=== PATIENT | male | born 1975 | race Caucasian/White ===

== ENCOUNTER 2022-11-26 13:07 | Emergency (ER) | payer BC, SELFPAY ==
[2022-11-26 13:08] VITALS: BP 165/121; PULSE 85; RESP 16; TEMP 36.3; O2SAT 99; BMI 28.5
[2022-11-26 13:47] VITALS: BP 157/90; PULSE 76
[2022-11-26 13:59] LABS: Bacteria 0 SEEN /hpf (None Seen); Mucous, Urine 0 SEEN /hpf (<or=2+); Red Blood Cells-Urine 0 SEEN /hpf (0-5); Squamous Epithelial Cells - UA 0 SEEN /hpf (0-5); White Blood Cells 0 SEEN /hpf (0-5)
[2022-11-26 14:09] VITALS: BP 148/92; BP 154/101; BP 162/93; PULSE 77; PULSE 88; PULSE 95
[2022-11-26 14:09] LABS: Color, Urine Straw (Yellow); Glucose, Dipstick Normal (Normal); Ketone-Dipstick Negative (Negative); Leukocyte Esterase-Dipstick Negative /ul (Negative); Nitrite-Dipstick Negative (Negative); Occult Blood-Urine Negative /ul (Negative); Protein-Dipstick Negative (Negative); Specific Gravity, Urine 1.005 (1.002-1.030); Urine Bilirubin Dipstick Negative (Negative); Urine Clarity Clear (Clear); Urine Urobilinogen Normal (Normal); Urine pH 6.5 (5.0 - 8.0)
[2022-11-26 14:10] LABS: Mean Corp Hgb Conc 34.9 g/dL (32-36); Mean Corpuscular Hgb 29.8 pg (27.0-32.0); Mean Corpuscular Volume 85.3 fL (80-94); Mean Platelet Vol. 9.3 fl (6.2-12.0); Platelet Count 214 K/mm3 (150-450); RBC Distribution Width SD 37.4 fl (35.1-43.9); Red Blood Count 5.04 M/mm3 (4.6-6.2); White Blood Count 5.8 K/mm3 (4.4-11.0)
[2022-11-26 14:22] LABS: Anion Gap 6 (5-15); BUN 14 mg/dL (7-18); Calcium,Total 9.8 mg/dL (8.5-10.1); Chloride 105 mmol/L (98-107); Creatinine, Serum 1.08 mg/dL (0.70-1.30); EST Glomerular Filtration Rate 77 mL/min (>60); Est Glom Filt Rate - Afr Amer 93 mL/min (>60); Estimated Creatinine Clearance 82.74 ml/min; Glucose 124 mg/dL (74-106); Potassium 4.1 mmol/L (3.5-5.1); Sodium Level 139 mmol/L (136-145)
[2022-11-26 14:34] VITALS: BP 142/86; PULSE 74; RESP 19; O2SAT 98
--- NOTE | 2022-11-26 14:54 | EX.ED.DYSGE1 ---
HPI History of Present Illness Chief Complaint: Dizziness Detail of Chief Complaint: Lightheadedness predominantly also fuzziness in his head Informant: patient Onset/Context/Timing Onset: Days (First episode occurred on Thursday. Had another episode while he was standing in line at [employer]) Context: Sudden Onset Timing: Intermittent Quality: Predominantly orthostatic and fuzziness in the head. Location: Not applicable Current Severity: Gone Maximum Severity: Moderate Worsened by: Possibly change in head position Relieved by: Nothing that patient can identify Associated Symptoms Associated Symptoms: Lightheadedness and head fullness Narrative Narrative: As perPatient is a 47-year-old male. Episode occurred and his blood pressure was elevated with systolic of 160. He denied headache. He denied double vision, blurred vision loss of vision. [place] ringing his ears or decreased hearing. No trouble with speech or swallowing. He denies cardiac respiratory symptoms. He denies nausea, vomiting diarrhea. Not black or maroon-colored stool. He denies urologic symptoms. He denied spinning sensation. There is no family history of cardiovascular disease at early age. Prior similar symptoms: No Recent Illness/Hospitalization: No PFSH PFSH Medical History no medical history no medical history Allergy/AdvReac Type Severity Reaction Status Date / Time No Known Allergies Allergy Verified 11/26/22 13:08 Family History no significant family his no significant family history Surgical History no surgical history no surgical history Social History (Updated 11/26/22 @ 14:[address] Jose Dominique MD) household members: spouse and family Smoking Status: Never smoker substance use type: does not use ROS ROS ED Constitutional Constitutional ED: Denies chills, fever(s), subjective, sweats or weight loss Eyes Eyes: Denies blurry vision, change in vision or diplopia ENT ENT ED: Reports other Details: And per HPI narrative ; Denies ear pain, rhinorrhea or sore throat Cardiovascular Cardiovascular: Denies chest pain, orthopnea, palpitations, paroxysmal nocturnal dyspnea or racing heartbeat Respiratory/Chest Respiratory/Chest: Denies cough, dyspnea, dyspnea on exertion, orthopnea or paroxysmal nocturnal dyspnea Gastrointestinal Gastrointestinal: Denies abdominal pain, melena, nausea or vomiting Genitourinary Genitourinary ED: Denies dysuria or hematuria Musculoskeletal Musculoskeletal: Denies arthralgias, back pain, myalgias or neck pain Integumentary Denies rash Neurologic Neurologic: Denies headache(s), paresthesias or weakness Hematologic/Lymphatic Hematologic/Lymphatic: Reports systems reviewed and no addt'l complaints, except as documented EXAM Physical Exam Const Vital Signs: 11/26/22 13:08 11/26/22 13:23 11/26/22 13:47 Temperature 97.4 F L Temperature Source Temporal Pulse Rate 85 76 Pulse Rate [Lying] Pulse Rate [Sitting (for 1 minute prior to obtaining)] Pulse Rate [Standing (for 1 minute prior to obtaining)] Respiratory Rate 16 Respiratory Effort Normal Respiratory Pattern Normal Blood Pressure 165/121 H 157/90 H Blood Pressure [Lying] Blood Pressure [Sitting (for 1 minute prior to obtaining)] Blood Pressure [Standing (for 1 minute prior to obtaining)] Blood Pressure Mean 135 112 Blood Pressure Mean [Lying] Blood Pressure Mean [Sitting (for 1 minute prior to obtaining)] Blood Pressure Mean [Standing (for 1 minute prior to obtaining)] Pulse Ox 99 Oxygen Delivery Method Room Air 11/26/22 14:09 11/26/22 14:34 Temperature Temperature Source Pulse Rate 74 Pulse Rate [Lying] 77 Pulse Rate [Sitting (for 1 minute prior to obtaining)] 88 Pulse Rate [Standing (for 1 minute prior to obtaining)] 95 Respiratory Rate 19 H Respiratory Effort Respiratory Pattern Blood Pressure 142/86 H Blood Pressure [Lying] 148/92 H Blood Pressure [Sitting (for 1 minute prior to obtaining)] 162/93 H Blood Pressure [Standing (for 1 minute prior to obtaining)] 154/101 H Blood Pressure Mean 104 Blood Pressure Mean [Lying] 110 Blood Pressure Mean [Sitting (for 1 minute prior to obtaining)] 116 Blood Pressure Mean [Standing (for 1 minute prior to obtaining)] 118 Pulse Ox 98 Oxygen Delivery Method Room Air Positive well nourished and well developed General Appearance ED: well developed and NAD; Negative for cyanotic, diaphoretic or pallor HEENT Reports moist mucous membranes HEENT Narrative: Head is normal phallic. Ears normal. TMs normal. External auditory canal normal. Nares patent without discharge. Uvula midline. No deviation with protrusion. No erythema or exudate the posterior pharynx. Eyes PERRL and EOMs intact bilaterally Eyes Narrative: There is no nystagmus. General Eye ED: Negative for pale conjunctiva or scleral icterus Neck no lymphadenopathy, supple and no JVD Neck Narrative: Trachea midline. No carotid bruit over the right or left carotid. Chest Wall inspection of chest normal and palpation of chest normal Resp normal respiratory effort and clear to auscultation bilaterally Cardio regular rate, regular rhythm, S1 normal heart sound, S2 normal heart sound and no murmurs GI normal to inspection, nondistended, normoactive bowel sounds, non-tender, non-distended and no masses; Negative for hepatosplenomegaly Back/Spine no CVA tenderness Cervical Spine: Negative for cervical spine tenderness Thoracic Spine / Upper Back: Negative for thoracic spinal tenderness Lumbar Spine / Lower Back: Negative for lumbar spinal tenderness Extremity normal to inspection General Extremety ED: Negative for edema or tenderness General Extremity: Negative for edema Neuro oriented x3, CN's II-XII intact bilaterally and no sensory deficits noted Neuro Narrative: Romberg with eyes open and close normal. The eye askew test was negative. The hint test was negative. There is no truncal ataxia with rising from supine position. Eastman-Hallpike maneuver was negative. Patient states when I raised him from a supine position with his head turned to the right he had dizziness and lasted a second or 2. There was no nystagmus. Sensorium / Orientation: alert Motor Exam: strength 5/5 throughout Skin no rashes or lesions noted, no wounds and skin turgor normal General Skin Exam: Negative for jaundice or pallor MDM MDM MDM Narrative Medical decision making narrative: Since symptom occurred with hypertension. Will obtain blood work and UA to assess for endorgan dysfunction. Suspect this represents benign positional paroxysmal vertigo. UA was obtained to assess specific gravity. Patient metabolic panel to determine if any evidence of renal injury. Orthostatic vital signs were normal. Patient's had numerous elevated blood pressure readings. He states he is slightly anxious. During exit interview, patient informed that several years ago he had elevated blood pressure. After he had lost weight his blood pressure normalized. Patient was referred to Dr. Brenda Thomas for follow-up. He was instructed to contact Dr. Yoo's office today for follow-up in 1 to 2 weeks. He was told he was not started on blood pressure medicine since he presently is asymptomatic and has no evidence of endorgan dysfunction. Upon further questioning his vertigo resolved when he was supine with eyes closed in his truck. He had transient episode of brain fog dizziness when he sat up in his truck prior to presenting to the emergency department. His history is consistent with benign paroxysmal positional vertigo. Lab Data Attestation: I reviewed the patient's lab results. Lab results narrative: Laboratory work-up is unremarkable. Labs: Laboratory Results - last 24 hr 11/26/22 11/26/22 11/26/22 13:40 13:40 13:45 WBC 5.8 RBC 5.04 Hgb 15.0 Hct 43.0 MCV 85.3 MCH 29.8 MCHC 34.9 RDW Std Deviation 37.4 RDW Coeff of Edmundo 12.0 Plt Count 214 MPV 9.3 Sodium 139 Potassium 4.1 Chloride 105 Carbon Dioxide 28.0 Anion Gap 6 BUN 14 Creatinine 1.08 Estim Creat Clear Calc 82.74 Est GFR (MDRD) Af Amer 93 Est GFR (MDRD) Non-Af 77 BUN/Creatinine Ratio 13.0 Glucose 124 H Calcium 9.8 Urine Color Straw Urine Clarity Clear Urine pH 6.5 Ur Specific [place] 1.005 Urine Protein Negative Urine Glucose (UA) Normal Urine Ketones Negative Urine Occult Blood Negative Urine Nitrite Negative Urine Bilirubin Negative Urine Urobilinogen Normal Ur Leukocyte Esterase Negative Urine RBC 0 SEEN Urine WBC 0 SEEN Ur Squamous Epith Cells 0 SEEN Urine Bacteria 0 SEEN Urine Mucus 0 SEEN Rhythm Strip Rhythm Strip: Sinus Rhythm Rate: 77 Ectopy: None Discharge Plan Triage Chief Complaint: Dizziness ED Provider: Jose Dominique Dx/Rx/DC Orders Clinical Impression: Benign paroxysmal positional vertigo of right ear, Asymptomatic hypertension Instructions: ED BPV Vertigo, ED Hypertension, To Be Confirmed Primary Care Provider: Care Physician,No Primary Referrals: Brenda Thomas MD [Med Staff - Dividing Machine Operator] - 1-2 Weeks Care Physician,No Primary [Primary Care Provider] - Disposition Disposition: Home, Self Care
[2022-11-26 15:22] VITALS: BP 172/99; PULSE 71; O2SAT 98
== END 2022-11-26 15:24 | disposition home or self-care (01) ==
PROVIDERS: Emergency Provider Emergency Medicine; Visit Provider Emergency Medicine
DX: H81.11 Benign paroxysmal vertigo, right ear (principal); I10 Essential (primary) hypertension
CPT/HCPCS: 80048; 81001; 85027; 99285; A4216

== ENCOUNTER 2025-08-12 18:13 | Emergency (ER) | payer BC, SELFPAY ==
[2025-08-12 18:14] VITALS: BP 157/95; PULSE 70; RESP 18; TEMP 36.6; O2SAT 96; BMI 27.4
--- NOTE | 2025-08-12 18:28 | EKG12_ITS ---
Test Reason : FLANK PAIN Blood Pressure : */* mmHG Vent. Rate : 65 BPM Atrial Rate : 65 BPM P-R Int : 126 ms QRS Dur : 86 ms QT Int : 404 ms P-R-T Axes : 17 1 29 degrees QTcB Int : 420 ms Normal sinus rhythm Normal ECG Confirmed by JEVON TATE ([id number]), senior editor IOANA ZELAYA ([id number]) on 08/14/2025 8:42:30 AM Referred By: Confirmed By: JEVON TATE
--- NOTE | 2025-08-12 18:28 | CT_ITS ---
PROCEDURE: ABDOMEN/PELVIS W IV CONT ONLY 08/12/2025 REASON FOR EXAM: R FLANK PAIN TECHNIQUE: Procedure Code: [id number] Modality: CT Procedure: ABDOMEN/PELVIS W IV CONT ONLY Coronal and Sagittal reconstruction series were provided. CONTRAST: Isovue 370 VOLUME: 100 mL One or more dose reduction techniques were used (e.g., Automated exposure control, adjustment of the mA and/or kV according to patient size, use of iterative reconstruction technique. RADIATION DOSE SUMMARY: DLP: 952.76 mGycm COMPARISON: None available. FINDINGS: Lower chest: Lung bases are clear. No pleural effusion. No pericardial effusion. Liver: Normal size. Normal morphology and enhancement. No masses. Gallbladder and biliary ducts: Normal gallbladder. Normal caliber intrahepatic and common bile ducts. Pancreas:Unremarkable. No ductal dilatation or mass. No peripancreatic fluid. Spleen: Unremarkable. Adrenal glands: Unremarkable. Kidneys and ureters: Normal renal size, morphology, and enhancement. There is a 2.7 mm distal right ureteral calculus just proximal to the vesicoureteral junction (series 2 image 104). There is mild upstream hydroureteronephrosis. Mild right perinephric edema. The right kidney is unremarkable. No left nephroureterolithiasis or hydronephrosis. Urinary bladder: Unremarkable. GI: Unremarkable stomach and duodenum. Normal caliber small bowel and large bowel.No evidence for bowel wall thickening. Appendix: Unremarkable. Peritoneum: No ascites. Small fat containing umbilical hernia. Lymph nodes: No lymphadenopathy. Vasculature: Portal, splenic, and superior mesenteric veins are patent. No abdominal aortic aneurysm. Reproductive organs: The prostate measures approximately 5.2 x 3.2 x 2.9 cm Musculoskeletal and soft tissues: No aggressive osseous lesions. Unremarkable soft tissues. CT/Abdomen/Pelvis W IV Cont ONLY IMPRESSION: 1. Obstructive 2.7 mm distal right ureteral calculus just proximal to the vesic oureteral junction with mild upstream hydroureteronephrosis. 2. Prostatomegaly. 3. Additional details as discussed above. Reading Location: [facility]
--- NOTE | 2025-08-12 18:29 | EX.ED.DYSGE1 ---
HPI History of Present Illness Chief Complaint: Flank Pain Narrative Narrative: Patient is a 50-year-old male with no known significant past medical history not on any daily medications who presents to the emergency department the chief complaint of right sided abdominal pain and back pain. He states that couple days ago he had a sensation feeling that he would have to pee but would not. He states that started around 3:00 this afternoon he had developed right sided pain as well as some back pain associated with this prompting him to come here for further evaluation management. Patient denies any history of tobacco use denies any IV drug use or any other drug use for that matter. Patient denies any sick contacts denies any fevers. States that his abnormal bowel movements formed self and is still able to urinate denies any blood in his urine PFSH PFSH Medical History no medical history Home Medications ?Medication ?Instructions ?Recorded ?Last Taken ?Type cephalexin 500 mg capsule 500 mg PO BID #10 caps 08/12/25 Unknown Rx ketorolac 10 mg tablet 10 mg PO Q6H PRN pain #20 tabs 08/12/25 Unknown Rx ondansetron 4 mg disintegrating 4 mg PO Q6H PRN nausea and 08/12/25 Unknown Rx tablet vomiting #20 tabs tamsulosin 0.4 mg capsule 0.4 mg PO DAILY #14 caps 08/12/25 Unknown Rx Allergy/AdvReac Type Severity Reaction Status Date / Time No Known Allergies Allergy Verified 08/12/25 18:13 Social History household members: spouse and family Smoking Status: Never smoker substance use type: does not use ROS ROS ED ROS Narrative Constitutional: Denies any fevers, chills, headaches Cardiovascular: Denies chest pain Respiratory: Denies shortness of breath Abdomen: Complains of right sided abdominal pain as noted above denies nausea vomiting diarrhea : Denies any increased frequency denies any painful urination denies any blood in the urine Neurological: Denies any numbness, weakness, tingling Musculoskeletal: Complains of flank pain as noted above Skin: Denies any rashes or lesions EXAM Physical Exam Narrative Exam Narrative: General: Patient is lying in bed rest comfortably did not appear to be in acute distress Head: Atraumatic, normocephalic Eyes: PERRL bilaterally, EOMI bilaterally, no conjunctival injection noted Neck: Soft, supple, trachea midline Cardiovascular: Regular rate and rhythm no murmurs gallops rubs noted Respiratory: Clear to auscultation bilaterally Abdomen: Soft, nondistended, no tenderness to palpation Musculoskeletal: No CVA tenderness noted on exam, no tenderness palpation midline of thoracolumbar spine Extremities: +5/5 strength noted in the bilateral upper and lower extremities Neurological: Patient following commands and that he was at [facility] the year is 2024 Skin: Warm, dry, intact no rashes or lesions noted no bruising or ecchymosis noted no petechia no purpura Const Vital Signs: 08/12/25 18:14 08/12/25 20:13 Temperature 98 F Temperature Source Oral Pulse Rate 70 69 Respiratory Rate 18 17 Blood Pressure 157/95 H Blood Pressure Mean 115 Pulse Ox 96 97 Oxygen Delivery Method Room Air Room Air MDM MDM MDM Narrative Medical decision making narrative: Patient is a 50-year-old male who presents to the emergency department chief complaint of right flank pain. On the differential diagnose includes but not limited to UTI, pyelonephritis, urolithiasis, AAA. Once workup obtained and reviewed he will be reevaluated. Patient's CBC reviewed and showed a white blood count of 13,000, hemoglobin 15.3, plate count of 263. Patient sodium was 140, potassium normal 3.5, creatinine was elevated to 1.38 which is slightly elevated from his baseline around 1.08. Patient AST and ALT are 27 and 33 respectively lipase normal at 21. Patient urinalysis showed 250 occult blood negative nitrates negative leukocyte esterase 10-20 red blood cells per high-power field and 0-5 white blood cells. Patient had 1+ bacteria this was sent for culture and will be given a gram Rocephin. Patient's CT abdomen pelvis with IV contrast showed a obstructive 2.7 mm distal right ureteral calculus just proximal to the vesicular ureteral junction with mild upstream hydroureteronephrosis. Prostamegaly noted. Patient is EKG reviewed showed sinus rhythm with a rate of 66 bpm the ME interval normal at 126. Discussed results with the patient and significant other at bedside they would like to go home at this point time. He is advised to follow-up with urology which she was referred to. He is advised to call them on Thursday for an appointment. Patient given first dose of Flomax and Toradol here in the emergency department. Prescriptions for Toradol Flomax and Keflex sent to the pharmacy as well. He is encouraged return with worsening symptoms or concerns. He is agreeable to plan all question concerns answered he is discharged home in stable condition. Lab Data Labs: Laboratory Results - last 24 hr 08/12/25 08/12/25 18:49 19:43 WBC 13.4 H RBC 5.15 Hgb 15.3 Hct 44.1 MCV 85.6 MCH 29.7 MCHC 34.7 RDW Std Deviation 37.5 RDW Coeff of Edmundo 12.0 Plt Count 263 MPV 9.3 Immature Gran % (Auto) 0.200 Neut % (Auto) 87.6 H Lymph % (Auto) 8.7 L [place] % (Auto) 3.2 Eos % (Auto) 0.1 Baso % (Auto) 0.2 Absolute Neuts (auto) 11.7 H Absolute Lymphs (auto) 1.17 Nucleated RBC % 0 Sodium 140 Potassium 3.5 Chloride 100 Carbon Dioxide 26.3 Anion Gap 14 BUN 17 Creatinine 1.38 H Estim Creat Clear Calc 62.62 Est GFR (MDRD) Non-Af 62 BUN/Creatinine Ratio 12.6 Glucose 150 H Calcium 9.6 Total Bilirubin 0.66 AST 27 ALT 33 Alkaline Phosphatase 27 L Total Protein 7.7 Albumin 4.7 Globulin 3.0 Albumin/Globulin Ratio 1.6 Lipase 21 Urine Color Yellow Urine Clarity Clear Urine pH 7.0 Ur Specific [place] 1.015 Urine Protein 15 H Urine Glucose (UA) Normal Urine Ketones Negative Urine Occult Blood 250 H Urine Nitrite Negative Urine Bilirubin Negative Urine Urobilinogen Normal Ur Leukocyte Esterase Negative Urine RBC 10-25 SEEN Urine WBC 0-5 SEEN Ur Squamous Epith Cells 0-5 SEEN Urine Bacteria 1+ Urine Mucus 0 SEEN Radiography Diagnostic Testing: Clinical Impression(s) from Imaging Studies Abdomen/Pelvis CT 08/12/25 18:28 IMPRESSION: 1. Obstructive 2.7 mm distal right ureteral calculus just proximal to the vesicoureteral junction with mild upstream hydroureteronephrosis. 2. Prostatomegaly. 3. Additional details as discussed above. Reading Location: [facility]EDS AT [facility] Discharge Plan Triage Chief Complaint: Flank Pain ED Provider: Timbo Jeffers Dx/Rx/DC Orders Clinical Impression: Urolithiasis, Right flank pain Prescriptions: New ondansetron 4 mg tablet,disintegrating 4 mg PO Q6H PRN (Reason: nausea and vomiting) Qty: 20 0RF ketorolac 10 mg tablet 10 mg PO Q6H PRN (Reason: pain) Qty: 20 0RF Rx Instructions: maximum total duration of 5 days from all oral, intranasal, or parenteral formulations tamsulosin 0.4 mg capsule 0.4 mg PO DAILY Qty: 14 0RF cephalexin 500 mg capsule 500 mg PO BID Qty: 10 0RF Primary Care Provider: Care Physician,No Primary Referrals: Care Physician,No Primary [Primary Care Provider, Medical] Ventura Kapoor MD [Med Staff - Active Staff, Urology] Albino Cunha MD [Med Staff - Active Staff, Family Practice] Activity Restrictions/Additional Instructions: Use prescriptions as prescribed. On Thursday call the urologist you are referred to to follow-up with him. Return with worsening symptoms or any other concerns as we discussed here. Your CT scan did show that you have a kidney stone down by your bladder. Print Language: Icelandic Disposition Disposition: Home, Self Care
[2025-08-12] MEDS: 0.9% Normal Saline (1000mL) 1,000 ML 999 ML IV (18:54)
[2025-08-12 19:05] LABS: Hematocrit 44.1 % (40-54); Hemoglobin 15.3 g/dL (13.0-16.5); Immature Granulocytes Count 0.030 X10^3/uL (0.0-0.0); Mean Corp Hgb Conc 34.7 g/dL (32-36); Mean Corpuscular Volume 85.6 fL (80-94); Mean Platelet Vol. 9.3 fl (6.2-12.0); NRBC Flagged by Analyzer 0 % (0-5); Platelet Count 263 K/mm3 (150-450); RBC Distribution Width CV 12.0 % (11.6-14.6); RBC Distribution Width SD 37.5 fl (35.1-43.9); Red Blood Count 5.15 M/mm3 (4.6-6.2); White Blood Count 13.4 K/mm3 (4.4-11.0)
[2025-08-12 19:24] LABS: AST(SGOT) 27 U/L (<=37); Alanine Aminotransfer ALT/SGPT 33 U/L (<=46); Albumin, Serum 4.7 g/dL (3.5-5.0); Alkaline Phosphatase 27 U/L (40-129); Anion Gap 14 (5-15); BUN 17 mg/dL (4-19); BUN/Creat Ratio 12.6 RATIO (10-20); Calcium,Total 9.6 mg/dL (7.6-11.0); Carbon Dioxide 26.3 mmol/L (21.0-32.0); Chloride 100 mmol/L (98-108); Estimated Creatinine Clearance 62.62 ml/min (50-250); Globulin 3.0 g/dL (2.2-4.2); Glucose 150 mg/dL (70-99); Lipase 21 U/L (13-75); Potassium 3.5 mmol/L (3.3-5.1)
[2025-08-12 19:45] LABS: Mucous, Urine 0 SEEN /hpf (<or=2+)
--- NOTE | 2025-08-12 19:46 | CM.ED ---
Social Work Date of referral: 08/12/25 Reason for referral: Advanced Care Directives (ACD's) not on file Referred by: Social Work identification Patient provided consent for social work visit. Linux Admin Engineer requested patient to bring in a copy of the ACD's which patient was agreeable to. Wanda Troncoso, SEWING TEACHER, ENAMEL CRACKER
[2025-08-12 19:47] LABS: Color, Urine Yellow (Yellow); Glucose, Dipstick Normal (Normal); Ketone-Dipstick Negative (Negative); Leukocyte Esterase-Dipstick Negative /ul (Negative); Nitrite-Dipstick Negative (Negative); Occult Blood-Urine 250 /ul (Negative); Protein-Dipstick 15 mg/dl (Negative); Specific Gravity, Urine 1.015 (1.002-1.030); Urine Bilirubin Dipstick Negative (Negative)
[2025-08-12 19:59] LABS: Red Blood Cells-Urine 10-25 SEEN /hpf (0-5); Squamous Epithelial Cells - UA 0-5 SEEN /hpf (0-5)
[2025-08-12 20:13] VITALS: PULSE 69; RESP 17; O2SAT 97
[2025-08-12 20:48] VITALS: BP 154/83; PULSE 75; RESP 16; TEMP 37; O2SAT 97
== END 2025-08-12 21:33 | disposition home or self-care (01) ==
PROVIDERS: Emergency Provider Emergency Medicine; Visit Provider Emergency Medicine
DX: N13.2 Hydronephrosis with renal and ureteral calculous obstruction (principal); N40.0 Benign prostatic hyperplasia without lower urinary tract symptoms
CPT/HCPCS: 74177; 80053; 81001; 83690; 85025; 87086; 93005; 96361; 96365; 96375; 99283; Q9967; A4216

== ENCOUNTER → 2025-09-07 | Outpatient (CLI) | payer BC, SELFPAY ==
--- NOTE | 2025-09-07 09:06 | CALC_PTH ---
PATIENT: RENU ANDRADE LOC: [facility] U#:[id number] AGE/SX: 50/M ROOM: RE09/07/[address]: Dr. Ventura Kapoor MD : [id number] BED: DIS: 09/07/2025 SPEC #: [id number] RECD: 09/08/25 08:20 STATUS: ITZ REAmor #: [id number] PEE: 09/07/25 09:[address]: Ventura Kapoor DEPT: SURGICAL PATHOLOGY RECD BY: Jerome Ham ENTERED: 09/08/25 08:20 SP TYPE: Calculi OTHR DR: Acacia Primary Care Phys Tissues: A - CALCULI Procedures: Surgery Specimen Level I HEADER OPERATION: Not noted PRE-OP DIAGNOSIS: Calculus of ureter TISSUE SUBMITTED: A- Calculi GROSS DIAGNOSIS A. Ureter, "calculus": - Calculus, multiple fragments (gross examination only) - see Comment. COMMENT The calculus is submitted in its entirety for chemical stone analysis. The results from this study will be reported separately. GROSS DESCRIPTION A. Received fresh labeled the patient's name and date of . Designated as "stone analysis" are multiple mast calculi, each measuring 0.1 cm or less. No sections are submitted. The specimen is for gross examination only. The specimen is sent for stone analysis. HI 09/08/2025 CPT:06899
== END | disposition home or self-care (01) ==
LOC: LABSPEC 14:49
PROVIDERS: Referring Provider Urology; Visit Provider Urology
DX: N20.1 Calculus of ureter (principal)
CPT/HCPCS: 82360; 88300